=== PATIENT | male | born 1995 | race Caucasian/White ===

== ENCOUNTER 2021-04-22 23:51 | Emergency (ER) | payer OTHER, SELFPAY ==
[2021-04-22 23:53] VITALS: BP 139/84; PULSE 98; RESP 16; TEMP 36.6; O2SAT 97; BMI 31.4
[2021-04-23 00:31] VITALS: BP 124/82; PULSE 100; O2SAT 95
[2021-04-23 00:58] VITALS: BP 140/80; PULSE 82; RESP 17; TEMP 36.7; O2SAT 99
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
== END 2021-04-23 01:00 | disposition home or self-care (01) ==
PROVIDERS: Emergency Provider Emergency Medicine; PCP Nurse Practitioner Family
DX: T23.161A Burn of first degree of back of right hand, initial encounter (principal); T26.02XA Burn of left eyelid and periocular area, initial encounter; X02.8XXA Other exposure to controlled fire in building or structure, initial encounter; Y92.010 Kitchen of single-family (private) house as the place of occurrence of the external cause
CPT/HCPCS: 99281

== ENCOUNTER 2022-04-28 19:19 | Emergency (ER) | payer OTHER, SELFPAY ==
--- NOTE | 2022-04-28 19:15 | ECG_ITS ---
APPROVED REPORT Exam: Resting ECG HR:94 bpm ECG Measurements Heart Rate 94 AXES VA 180 P 67 QRSd 97 QRS 83 QT 353 T 35 QTc 405 Conclusion SINUS RHYTHM POSSIBLE RIGHT VENTRICULAR CONDUCTION DELAY [RSR (QR) IN V1/V2] BORDERLINE ECG UNCONFIRMED REPORT Electronically signed by : Rodriguez Gaona MD 04/29/2022 13:21:43
[2022-04-28 19:19] VITALS: BP 165/99; PULSE 102; RESP 21; TEMP 36.6; O2SAT 99; BMI 37.5
[2022-04-28 19:21] VITALS: BMI 36.6
--- NOTE | 2022-04-28 19:22 | XR_ITS ---
PROCEDURE INFORMATION: Exam: XR Chest Exam date and time: 04/28/2022 7:48 PM Age: 26 years old Clinical indication: Sternal or substernal pain; Additional info: Chest pain TECHNIQUE: Imaging protocol: Radiologic exam of the chest. Views: 2 views. COMPARISON: No relevant prior studies available. FINDINGS: Lungs: The known nodular density in the inferolateral right lower lobe is faintly perceptible on the frontal chest radiograph. The lungs appear otherwise clear. No focal areas of consolidation. Pleural spaces: No pleural effusions or appreciable adenopathy. Negative for pneumothorax. Heart/Mediastinum: Cardiac silhouette and pulmonary vasculature are within range of normal. Bones/joints: There is no evidence of acute fracture. IMPRESSION: 1. The known nodular density in the inferolateral right lower lobe as seen on the CT from the same date and time is faintly perceptible on the frontal chest radiograph. The lungs appear otherwise clear. Findings were discussed with HONG DUFFY at 04/28/2022 8:28 PM EDT.
--- NOTE | 2022-04-28 19:25 | CT_ITS ---
PROCEDURE INFORMATION: Exam: CT Abdomen And Pelvis Without Contrast Exam date and time: 04/28/2022 7:48 PM Age: 26 years old Clinical indication: Abdominal pain; Localized; Lower; Additional info: Severe low abd pain with tenderness radiating TECHNIQUE: Imaging protocol: Computed tomography of the abdomen and pelvis without contrast. Radiation optimization: All CT scans at this facility use at least one of these dose optimization techniques: automated exposure control; mA and/or kV adjustment per patient size (includes targeted exams where dose is matched to clinical indication); or iterative reconstruction. COMPARISON: No relevant prior studies available. FINDINGS: Lungs: A nonspecific somewhat lobular nodule within the inferior posterolateral right lower lobe measuring 15 x 14 by 17 mm. Lung bases are otherwise clear. Pleural spaces: There are no pleural effusions. Heart: The visualized portions of the heart are unremarkable. There is no evidence of pericardial fluid collections. Liver: There is a diffuse decrease in hepatic parenchymal density, consistent with fatty infiltration. There are regions of focal parenchymal sparing adjacent to the gallbladder fossa. There is mild enlargement of the liver measuring 20 cm in CC dimension. Gallbladder and bile ducts: Normal. No calcified stones. No ductal dilation. Pancreas: The pancreas is normal. Spleen: The spleen is normal. Adrenal glands: The adrenal glands are normal. Kidneys and ureters: There is a 4 mm calcification in the distal left ureter without significant hydronephrosis or hydroureter. No significant perinephric fat stranding. Kidneys are otherwise within range of normal. Stomach and bowel: The stomach is normal. The duodenum is unremarkable. Unopacified loops of small bowel are within range of normal. Lack of gastrointestinal contrast limits evaluation of bowel. The colon is normal. Unopacified loops of small bowel are within range of normal. Appendix: A normal appendix is identified. Intraperitoneal space: No evidence of intraperitoneal free air. No significant free fluid. Vasculature: No abdominal aortic aneurysm. Lymph nodes: No enlarged lymph nodes. There are a few scattered small retroperitoneal and periportal lymph nodes, not of pathologic significance by CT size criteria. Urinary bladder: The bladder is decompressed. Reproductive: Unremarkable as visualized. Bones/joints: There is a benign bone island involving the right proximal femur. There is no evidence of acute fracture. Soft tissues: No significant soft tissue edema. There is a tiny fat-containing umbilical hernia. IMPRESSION: 1. 4 mm calculus in the distal left ureter without significant obstruction. 2. Nonspecific macro lobular lobular pulmonary nodule within the inferior posterolateral right lower lobe measuring 15 x 14 by 17 mm. While findings may reflect benign lesion such as granuloma or hamartoma., recommend Recomend additional evaluation to exclude the possibility of malignancy and pulmonary consultation. Highly suspicious nodule(s). Consider non-emergent PET/CT, or tissue sampling.(Reference: Kwasi) References: Kathyhomarry Taveras, et al. Guidelines for Management of Incidental Pulmonary Nodules Detected on CT Images: From the Fleischner Society 2017. Radiology. 2017;284(1):228-243. 3. Mild hepatomegaly. 4. Tiny fat- containing umbilical hernia.
[2022-04-28 19:29] LABS: Basophils # 0.1 K/mm3 (0-0.2); Eosinophils # 0.3 K/mm3 (0.0-0.4); Eosinophils % 3.2 % (0.1-12.0); Hematocrit 42.2 % (42.0-52.0); Hemoglobin 14.5 g/dL (14.1-18.0); Lymphocytes # 3.3 K/mm3 (0.7-4.5); Lymphocytes % 33.8 % (10-50); Mean Corpuscular HGB Conc 34.3 g/dL (31.8-35.4); Mean Corpuscular Hemoglobin 29.3 pg (27.0-31.2); Mean Corpuscular Volume 85.2 fl (80-94); Mean Platelet Volume 7.8 fl (7.4-10.4); Monocytes # 0.4 K/mm3 (0.1-1.0); Monocytes % 4.3 % (1.7-9.3); Neutrophils # 5.6 K/mm3 (1.8-7.8); Neutrophils % 57.8 % (37.0-80.0); Platelet Count 311 K/mm3 (142-424); Red Blood Count 4.96 M/mm3 (4.60-6.20); White Blood Count 9.7 K/mm3 (4.8-10.8)
[2022-04-28 19:40] LABS: Chloride 103 mmol/L (98-107); Potassium 3.5 mmoL/L (3.5-5.1); Sodium 139 mmol/L (136-145)
[2022-04-28 19:43] LABS: Alanine Aminotransferase 50 U/L (12-78); Albumin Level 4.5 g/dl (3.5-5.0); Alkaline Phosphatase 117 U/L (38-126); Amylase 54 U/L (30-110); Anion Gap 16.5 mEq/L (5-15); Aspartate Amino Transferase 44 U/L (17-59); Bilirubin,Indirect 0.4 mg/dL (0.0-0.9); Bilirubin,Total 0.4 mg/dl (0.2-1.3); Bilirubin,Unconjugated 0.4 mg/dL (0.0-1.1); Blood Urea Nitrogen 12 mg/dl (9-20); Calcium 9.8 mg/dl (8.4-10.2); Carbon Dioxide 23 mmol/L (22.0-30.0); Creatinine Clearance Estimated 258 mL/min (50-200); Estimated Glomerular Filt Rate 118 ml/min (>60); GFR (African American) 143 ML/MIN (>60); Glucose 123 mg/dl (74-100); Lipase 54 U/L (23-300); Total Protein,Serum 7.6 g/dl (6.3-8.2)
--- NOTE | 2022-04-28 19:52 | PC.NURSE ---
pt rolling around n pain states its LLQ GOES FROM FLANK TO GROIN WITH ALOT OF PRESSUIRE IN HIS SCROTUM . PT MEDICATED WITH A 1MG DILAUDID , PT GOING TO CT
[2022-04-28 19:56] LABS: Troponin I < 0.01 ng/ml (0.00-0.034)
[2022-04-28 19:56] LABS: Microscopic, Urine URINE MICROSCOPIC (MICROSCOPIC)
[2022-04-28 19:59] LABS: Appearance,Urine CLEAR (Clear); Bilirubin,Urine Negative (Negative); Blood, Urine 2+ (Negative); Color,Urine YELLOW (Yellow); Glucose,Urine (UA) Negative (Negative); Ketones,Urine Negative (Negative); Leukocyte Esterase,Urine Negative (Negative); Nitrate,Urine Negative (Negative); Protein,Urine TRACE (Negative); Specific Gravity, Urine >= 1.030 (1.005-1.030); Urobilinogen,Urine 0.2 EU/dl (0.2)
--- NOTE | 2022-04-28 20:26 | PC.NURSE ---
Dr. Duque s/w JAAD
[2022-04-28 20:30] VITALS: BP 154/88; PULSE 75; O2SAT 98
[2022-04-28 20:58] LABS: Bacteria,Urine Trace /lpf; WBC,Urine Occasional #/hpf (0-3)
--- NOTE | 2022-04-28 21:39 | PC.NURSE ---
Pt vomiting and in pain. Dr. Duque aware of pt's condition. No new orders at this time.
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
--- NOTE | 2022-04-28 22:39 | PC.NURSE ---
Per Dr Duque, verbal order received for Dilaudid 1mg and Phenergan 25mg IV, order placed in mar
[2022-04-28 22:57] VITALS: BP 135/74; PULSE 101; O2SAT 98
--- NOTE | 2022-04-28 22:59 | PC.NURSE ---
Pt reports his pain is decreasing and would only like the nausea medication at this time. He would like to hold off on dilaudid. Will continue to monitor pt and recheck his pain and nausea level.
[2022-04-28 23:01] VITALS: BP 121/71; PULSE 110; PULSE 90; O2SAT 97
[2022-04-29 00:34] VITALS: BP 118/75; PULSE 74; RESP 16; TEMP 36.7; O2SAT 97
== END 2022-04-29 00:40 | disposition home or self-care (01) ==
PROVIDERS: Emergency Provider Emergency Medicine
DX: N23 Unspecified renal colic (principal); Z79.899 Other long term (current) drug therapy; Z72.0 Tobacco use
CPT/HCPCS: 71046; 74176; 80048; 80076; 81001; 82150; 83690; 84484; 85025; 93005; 96365; 96366; 96375; 96376; 99285; J2405

== ENCOUNTER 2024-06-26 17:07 | Emergency (ER) | payer SELFPAY ==
--- NOTE | 2024-06-26 17:40 | HMH.EDGENADL ---
Discharge Plan Disposition Patient Disposition: Home, Self-Care Condition: Good Prescriptions Prescriptions: New ondansetron 4 mg tablet,disintegrating 4 mg PO Q6H PRN (Reason: nausea and vomiting) Qty: 10 0RF ketorolac 10 mg tablet 10 mg PO Q8H PRN (Reason: pain) 3 Days Qty: 10 0RF tamsulosin 0.4 mg capsule 0.4 mg PO HS Qty: 10 0RF Discontinued tamsulosin [Flomax] 0.4 mg capsule 0.4 mg PO DAILY Qty: 10 0RF Referrals Follow up/Referrals: Bessie Kelley APRN [Primary Care Provider] - See instructions Activity Restrictions/Add. Instructions Additional Instructions/Restrictions: Please strain all urine to capture the stone. If you did not have any improvement or have worsening signs or symptoms follow-up with your PCP or return to ER. If you develop fever intractable pain nausea vomiting return to the ER immediately. Clinical Impressions Clinical Impression: Calculus of ureterovesical junction (UVJ) Instructions Patient Instructions: DI for Diarrhea and Traveler's Diarrhea -- Adult, DI for Diarrhea and Traveler's Diarrhea -- Child, DI for Nausea -- Adult, DI for Nausea -- Child Print Language Print Language: [place] Discharge ED Provider: Keo Kennedy General Adult HPI <SU Vaz - Last Filed: 06/26/24 20:35> General Chief complaint: Nausea/Vomiting/Diarrhea Stated complaint: possible kidney stone with vomiting Time Seen by Provider: 06/26/24 17:38 History of Present Illness HPI narrative: Patient presents for right lower quadrant abdominal pain. Patient states it started this morning and has not radiated. It is only intensified throughout the day. He states he also feels right flank pain. He does have a history of previous kidney stone however does retain his appendix. He denies any fever chills hemoptysis hematochezia melena hematemesis hematuria. Related Data Previous Rx's ?Medication ?Instructions ?Recorded ketorolac 10 mg tablet 10 mg PO Q8H PRN pain 3 days #10 06/26/24 tabs ondansetron 4 mg disintegrating 4 mg PO Q6H PRN nausea and 06/26/24 tablet vomiting #10 tabs tamsulosin 0.4 mg capsule 0.4 mg PO HS #10 caps 06/26/24 Allergies Allergy/AdvReac Type Severity Reaction Status Date / Time No Known Allergies Allergy Verified 04/28/22 19:21 PFS <SU Vaz - Last Filed: 06/26/24 20:35> [facility] Disclaimer: The information contained in this section may have been updated after the patient was seen, as this information can be updated by other users. Social History (Updated 04/28/22 @ 23:54 by Deven Duque MD) Smoking Status: Never smoker alcohol intake: never current occupational status: employed Travel in the last 8 weeks: None Have you lived/traveled outside [place] in past 30 days?: No Contact w/someone who lives/traveled outside US past 30 days?: No Exposure to someone with infectious disease in past 14 days?: No Do you have a fever (greater than 100.4 F or 38 C)?: No Have you tested positive for COVID-19: No Exposed to someone with COVID-19 in past 14 days?: No Do you have a sore throat?: No Do you have a cough?: No Do you have any weakness?: No Do you have any diarrhea?: No Are you experiencing any unusual bleeding?: No Do you have any muscle aches/pain?: No Do you have any abdominal pain?: No Are you experiencing loss of taste or smell?: No Other Medical History Have you received the Flu Vaccine for this season: No Have you received the Pneumonia Vaccine: No <SU Vaz - Last Filed: 06/26/24 20:35> ROS Obtained: Yes Systems reviewed as appropriate & no additional complaints except as documented Physical Exam <SU Vaz - Last Filed: 06/26/24 20:35> General General appearance: alert and in no apparent distress Respiratory Respiratory exam: Present normal lung sounds bilaterally Cardiovascular Cardiovascular exam: Present regular rate Neurological Exam Neurological exam: Present alert and oriented X3 Medical Decision Making <SU Vaz - Last Filed: 06/26/24 20:35> Medical Records Medical records reviewed: Yes I reviewed the patient's medical records. Screening: Per USPSTF and CDC recommendations, given the prevalence of disease in our region, it is our hospital?s policy to screen for HIV and viral Hepatitis for all patients aged 18 and over and those with ongoing risk factors. Tono Inquiry Pt receiving controlled substance: No Vital Signs: 06/26/24 17:48 06/26/24 18:05 Temperature 98.7 F Temperature Source Oral Pulse Rate 86 Pulse Rate [Left] 90 Respiratory Rate 18 Blood Pressure 162/101 H Blood Pressure [Right Arm] 163/102 H Blood Pressure Mean [Right Arm] 122 Blood Pressure Source [Right Arm] Automatic Cuff 02 Sat by Pulse Oximetry 96 100 Oxygen Delivery Method Room Air Room Air Lab Data Lab results reviewed: Yes I reviewed the patient's lab results. Lab Results 06/26/24 17:35: WBC 13.0 H, RBC 5.02, Hgb 14.6, Hct 41.6 L, MCV 82.9, MCH 29.1, MCHC 35.1, RDW 13.3, Plt Count 308, MPV 10.5 H, Neut % (Auto) 74.5, Lymph % (Auto) 17.4, [place] % (Auto) 5.6, Eos % (Auto) 1.4, Baso % (Auto) 0.5, Neut # (Auto) 9.7 H, Lymph # (Auto) 2.3, [place] # (Auto) 0.7, Eos # (Auto) 0.2, Baso # (Auto) 0.1, Sodium 136, Potassium 3.7, Chloride 105, Carbon Dioxide 21 L, Anion Gap 13.7, BUN 14, Creatinine 1.00, Estimated Creat Clear 210, Estimated GFR 90, Est GFR ( Amer) 108, Glucose 140 H, Calcium 9.7, Total Bilirubin 0.7, AST 70 H, ALT 74, Alkaline Phosphatase 133 H, Total Protein 7.6, Albumin 4.5, Globulin 3.1, Albumin/Globulin Ratio 1.5, HIV Ag/Ab Combo Qual Negative 06/26/24 18:26: Urine Color Yellow, Urine Appearance Turbid, Urine pH 6.0, Ur Specific Lyman >= 1.030, Urine Protein Trace, Urine Glucose (UA) Negative, Urine Ketones 1+, Urine Blood 3+ A, Urine Nitrate Negative, Urine Bilirubin 1+ A, Urine Urobilinogen 0.2, Ur Leukocyte Esterase Negative, Urine RBC 10-20, Urine WBC Occasional, Ur Squamous Epith Cells Occasional, Urine Bacteria 4+ 06/26/24 17:35 06/26/24 17:35 Orders (Tests/Meds): ED MEDICATIONS Discontinued Medications Generic Name Dose Route Start Last Admin Trade Name Alea PRN Reason Stop Dose Admin Acetaminophen 1,000 mg 06/26/24 18:03 06/26/24 18:35 Acetaminophen 1,000mg/100ml Vial IV 06/26/24 18:04 1,000 mg ONCE ONE Administration Hydromorphone HCl 1 mg 06/26/24 19:27 06/26/24 19:44 Hydromorphone 2mg/Ml Syringe IV 06/26/24 19:28 1 mg ONCE ONE Administration Sodium Chloride 1,000 mls @ 999 mls/hr 06/26/24 18:03 Sod Chlor 0.9% 1000ml Bag IV 06/26/24 19:03 .Q1H1M ONE Lactated Ringer's 1,000 mls @ 999 mls/hr 06/26/24 18:03 06/26/24 18:37 Lactated Ringer's 1000 Ml Bag IV 06/26/24 19:03 999 mls/hr .Q1H1M ONE Administration Iopamidol 75 ml 06/26/24 18:41 06/26/24 18:42 Iopamidol-370 (76%);100ml Bottle IV 06/26/24 18:42 75 ml ONCE ONE Administration Ketorolac Tromethamine 15 mg 06/26/24 18:03 06/26/24 18:36 Ketorolac 30mg/Ml Vial IV 06/26/24 18:04 15 mg ONCE ONE Administration Morphine Sulfate 2 mg 06/26/24 18:03 06/26/24 18:36 Morphine 2mg/Ml Syringe IV 06/26/24 18:04 2 mg ONCE ONE Administration Ondansetron HCl 4 mg 06/26/24 18:00 06/26/24 18:07 Ondansetron 4mg/2ml Vial IV 06/26/24 18:01 4 mg ONCE ONE Administration Sodium Chloride 10 ml 06/26/24 18:41 06/26/24 18:42 Sodium Chloride 0.9% 10ml Syr (Rad Only) IV 06/26/24 18:42 10 ml ONCE ONE Administration Tamsulosin HCl 0.4 mg 06/26/24 19:28 06/26/24 19:44 Tamsulosin 0.4mg Capsule PO 06/26/24 19:29 0.4 mg ONCE ONE Administration ORDERS Category Date Time Status CT abdomen pelvis w con Stat Cat Scan 06/26/24 18:03 Completed CBC w/Auto Diff [Complete Blood Count Auto Diff] Stat Lab 06/26/24 17:35 Completed CMP [Comprehensive Metabolic Panel] Stat Lab 06/26/24 17:35 Results HIV Combo Stat Lab 06/26/24 17:35 Completed Hep C Ab with Reflex to RNA Stat Lab 06/26/24 17:35 Received Procalcitonin Stat Lab 06/26/24 17:35 Results UA [Urinalysis and Microscopic] Stat Lab 06/26/24 18:26 Completed Urine Culture Stat Micro 06/26/24 18:26 Received Medical Decision Narrative: In summary patient is a 28-year-old male who presents to the emergency department for evaluation of right lower quadrant abdominal pain. Patient is actually hypertensive with a blood pressure 163/102 heart rate of 90 respiratory rate 18 satting at 96% on room air upon arrival, afebrile 98.7. Physical exam is markable for exquisite right lower quadrant tenderness however he does not have rebound or guarding or rigidity. Bowel sounds are normal active.. Differential diagnosis includes acute appendicitis versus kidney stone versus urinary tract infection etc. Initial workup will be conducted with hematologic labs urinalysis CT scan abdomen pelvis. Initial interventions include crystalloid bolus Toradol Tylenol morphine Zofran. Initial workup reviewed by me his hematologic and labs are nonactionable however his urinalysis shows blood without evidence of infection, my informal interpretation of CT scan abdomen pelvis shows right-sided hydronephrosis with a very small right UVJ stone. Upon repeat evaluation patient had significant improvement with initial intervention. Given this patient is appropriate for discharge with Zofran Toradol tamsulosin and opiates with instructions to strain all urine. Patient given strict return precautions to return to the ER. <Keo Kennedy MD - Last Filed: 06/26/24 20:49> Vital Signs: 06/26/24 17:48 06/26/24 18:05 Temperature 98.7 F Temperature Source Oral Pulse Rate 86 Pulse Rate [Left] 90 Respiratory Rate 18 Blood Pressure 162/101 H Blood Pressure [Right Arm] 163/102 H Blood Pressure Mean [Right Arm] 122 Blood Pressure Source [Right Arm] Automatic Cuff 02 Sat by Pulse Oximetry 96 100 Oxygen Delivery Method Room Air Room Air Lab Data Lab Results 06/26/24 17:35: WBC 13.0 H, RBC 5.02, Hgb 14.6, Hct 41.6 L, MCV 82.9, MCH 29.1, MCHC 35.1, RDW 13.3, Plt Count 308, MPV 10.5 H, Neut % (Auto) 74.5, Lymph % (Auto) 17.4, [place] % (Auto) 5.6, Eos % (Auto) 1.4, Baso % (Auto) 0.5, Neut # (Auto) 9.7 H, Lymph # (Auto) 2.3, [place] # (Auto) 0.7, Eos # (Auto) 0.2, Baso # (Auto) 0.1, Sodium 136, Potassium 3.7, Chloride 105, Carbon Dioxide 21 L, Anion Gap 13.7, BUN 14, Creatinine 1.00, Estimated Creat Clear 210, Estimated GFR 90, Est GFR ( Amer) 108, Glucose 140 H, Calcium 9.7, Total Bilirubin 0.7, AST 70 H, ALT 74, Alkaline Phosphatase 133 H, Total Protein 7.6, Albumin 4.5, Globulin 3.1, Albumin/Globulin Ratio 1.5, HIV Ag/Ab Combo Qual Negative 06/26/24 18:26: Urine Color Yellow, Urine Appearance Turbid, Urine pH 6.0, Ur Specific Lyman >= 1.030, Urine Protein Trace, Urine Glucose (UA) Negative, Urine Ketones 1+, Urine Blood 3+ A, Urine Nitrate Negative, Urine Bilirubin 1+ A, Urine Urobilinogen 0.2, Ur Leukocyte Esterase Negative, Urine RBC 10-20, Urine WBC Occasional, Ur Squamous Epith Cells Occasional, Urine Bacteria 4+ Orders (Tests/Meds): ED MEDICATIONS Discontinued Medications Generic Name Dose Route Start Last Admin Trade Name Freq PRN Reason Stop Dose Admin Acetaminophen 1,000 mg 06/26/24 18:03 06/26/24 18:35 Acetaminophen 1,000mg/100ml Vial IV 06/26/24 18:04 1,000 mg ONCE ONE Administration Hydromorphone HCl 1 mg 06/26/24 19:27 06/26/24 19:44 Hydromorphone 2mg/Ml Syringe IV 06/26/24 19:28 1 mg ONCE ONE Administration Sodium Chloride 1,000 mls @ 999 mls/hr 06/26/24 18:03 Sod Chlor 0.9% 1000ml Bag IV 06/26/24 19:03 .Q1H1M ONE Lactated Ringer's 1,000 mls @ 999 mls/hr 06/26/24 18:03 06/26/24 18:37 Lactated Ringer's 1000 Ml Bag IV 06/26/24 19:03 999 mls/hr .Q1H1M ONE Administration Iopamidol 75 ml 06/26/24 18:41 06/26/24 18:42 Iopamidol-370 (76%);100ml Bottle IV 06/26/24 18:42 75 ml ONCE ONE Administration Ketorolac Tromethamine 15 mg 06/26/24 18:03 06/26/24 18:36 Ketorolac 30mg/Ml Vial IV 06/26/24 18:04 15 mg ONCE ONE Administration Morphine Sulfate 2 mg 06/26/24 18:03 06/26/24 18:36 Morphine 2mg/Ml Syringe IV 06/26/24 18:04 2 mg ONCE ONE Administration Ondansetron HCl 4 mg 06/26/24 18:00 06/26/24 18:07 Ondansetron 4mg/2ml Vial IV 06/26/24 18:01 4 mg ONCE ONE Administration Sodium Chloride 10 ml 06/26/24 18:41 06/26/24 18:42 Sodium Chloride 0.9% 10ml Syr (Rad Only) IV 06/26/24 18:42 10 ml ONCE ONE Administration Tamsulosin HCl 0.4 mg 06/26/24 19:28 06/26/24 19:44 Tamsulosin 0.4mg Capsule PO 06/26/24 19:29 0.4 mg ONCE ONE Administration ORDERS Category Date Time Status CT abdomen pelvis w con Stat Cat Scan 06/26/24 18:03 Completed CBC w/Auto Diff [Complete Blood Count Auto Diff] Stat Lab 06/26/24 17:35 Completed CMP [Comprehensive Metabolic Panel] Stat Lab 06/26/24 17:35 Results HIV Combo Stat Lab 06/26/24 17:35 Completed Hep C Ab with Reflex to RNA Stat Lab 06/26/24 17:35 Received Procalcitonin Stat Lab 06/26/24 17:35 Results UA [Urinalysis and Microscopic] Stat Lab 06/26/24 18:26 Completed Urine Culture Stat Micro 06/26/24 18:26 Received Medical Decision Narrative: In summary patient is a 28-year-old male who presents to the emergency department for evaluation of right lower quadrant abdominal pain. Patient is actually hypertensive with a blood pressure 163/102 heart rate of 90 respiratory rate 18 satting at 96% on room air upon arrival, afebrile 98.7. Physical exam is markable for exquisite right lower quadrant tenderness however he does not have rebound or guarding or rigidity. Bowel sounds are normal active.. Differential diagnosis includes acute appendicitis versus kidney stone versus urinary tract infection etc. Initial workup will be conducted with hematologic labs urinalysis CT scan abdomen pelvis. Initial interventions include crystalloid bolus Toradol Tylenol morphine Zofran. Initial workup reviewed by me his hematologic and labs are nonactionable however his urinalysis shows blood without evidence of infection, my informal interpretation of CT scan abdomen pelvis shows right-sided hydronephrosis with a very small right UVJ stone. Upon repeat evaluation patient had significant improvement with initial intervention. Given this patient is appropriate for discharge with Zofran Toradol tamsulosin and opiates with instructions to strain all urine. Patient given strict return precautions to return to the ER. I was consulted by the NASH, and we discussed the complexity of the problems being addressed. I approved the treatment and management plan for this patient's care in the Emergency Department, thus performing a substantive portion of the medical decision making. Keo Kennedy MD Critical Care <SU Vaz - Last Filed: 06/26/24 20:35> Critical Care Time Critical Care Time: No
[2024-06-26 17:48] VITALS: BP 163/102; PULSE 90; RESP 18; TEMP 37.1; O2SAT 96; BMI 37.8
--- NOTE | 2024-06-26 18:03 | CT_ITS ---
PROCEDURE INFORMATION: Exam: CT Abdomen And Pelvis With Contrast Exam date and time: 06/26/2024 6:40 PM Age: 28 years old Clinical indication: Other: Right lower quadrant abdominal pain TECHNIQUE: Imaging protocol: Computed tomography of the abdomen and pelvis with contrast. Radiation optimization: All CT scans at this facility use at least one of these dose optimization techniques: automated exposure control; mA and/or kV adjustment per patient size (includes targeted exams where dose is matched to clinical indication); or iterative reconstruction. Contrast material: ISOVUE; Contrast volume: 75 ml; Contrast route: IV; COMPARISON: 1. CT ABDOMEN PELVIS WO CON 04/28/2022 7:48 PM 2. CR XR CHEST 2V 04/28/2022 7:48 PM FINDINGS: Lungs: There is a lobulated nodule at the right lung base measuring 1.6 cm which appears stable since at least April 28, 2022. Liver: There is diffuse fatty infiltration throughout the liver. Gallbladder and biliary ducts: No acute process. Pancreas: Normal. Spleen: Normal. Adrenal glands: The adrenal glands appear normal. Kidneys and ureters: There is [id number] right hydroureteronephrosis extending to the right UVJ where there is a 2 mm calculus (image 116 series 3). There is a right-sided obstructive uropathy. Stomach and bowel: The stomach, small bowel, and colon are well-distended and show no evidence of wall thickening, masses, or obstruction. Appendix: No evidence of appendicitis. Intraperitoneal space: Unremarkable. Vasculature: The abdominal aorta and its major branches appear normal without evidence of aneurysm or stenosis. There are pelvic phleboliths. Lymph nodes: No lymphadenopathy. Urinary bladder: Unremarkable as visualized. Reproductive: No acute process. Bones/joints: The visualized osseous structures of the abdomen and pelvis appear normal for patient age. Soft tissues: There is a small fat containing umbilical hernia. IMPRESSION: 1. There is [id number] right hydroureteronephrosis extending to the right UVJ where there is a 2 mm calculus (image 116 series 3). 2. Hepatic steatosis. 3. There is a lobulated nodule at the right lung base measuring 1.6 cm which appears stable since at least April 28, 2022.
[2024-06-26 18:05] VITALS: BP 162/101; PULSE 86; O2SAT 100
[2024-06-26] MEDS: ONDANSETRON 4MG/2ML VIAL 4 MG IV (18:07)
[2024-06-26 18:14] LABS: Albumin Level 4.5 g/dl (3.5-5.0)
[2024-06-26 18:15] LABS: Sodium 136 mmol/L (136-145)
[2024-06-26 18:17] LABS: Blood Urea Nitrogen 14 mg/dl (9-20); Creatinine Clearance Estimated 210 mL/min (50-200); Estimated Glomerular Filt Rate 90 ml/min (>60); GFR (African American) 108 ML/MIN (>60)
[2024-06-26 18:18] LABS: Bilirubin,Total 0.7 mg/dl (0.2-1.3); Carbon Dioxide 21 mmol/L (22.0-30.0); Glucose 140 mg/dl (74-100)
[2024-06-26 18:21] LABS: Basophils # 0.1 K/mm3 (0-0.2); Basophils % 0.5 % (0.1-2.0); Eosinophils # 0.2 K/mm3 (0.0-0.4); Eosinophils % 1.4 % (0.1-12.0); Hematocrit 41.6 % (42.0-52.0); Hemoglobin 14.6 g/dL (14.1-18.0); Lymphocytes # 2.3 K/mm3 (0.7-4.5); Lymphocytes % 17.4 % (10-50); Mean Corpuscular HGB Conc 35.1 g/dL (31.8-35.4); Mean Corpuscular Hemoglobin 29.1 pg (27.0-31.2); Mean Corpuscular Volume 82.9 fl (80-94); Mean Platelet Volume 10.5 fl (7.4-10.4); Monocytes # 0.7 K/mm3 (0.1-1.0); Monocytes % 5.6 % (1.7-9.3); Neutrophils # 9.7 K/mm3 (1.8-7.8); Neutrophils % 74.5 % (37.0-80.0); Platelet Count 308 K/mm3 (142-424); Red Blood Count 5.02 M/mm3 (4.60-6.20); Red Cell Distribution Width 13.3 % (11.5-17.5)
[2024-06-26 18:31] LABS: Microscopic, Urine URINE MICROSCOPIC (MICROSCOPIC)
[2024-06-26] MEDS: ACETAMINOPHEN 1,000MG/100ML VIAL 1000 MG IV (18:35)
[2024-06-26] MEDS: KETOROLAC 30MG/ML VIAL 15 MG IV (18:36)
[2024-06-26] MEDS: MORPHINE 2MG/ML SYRINGE 2 MG IV (18:36)
[2024-06-26] MEDS: LACTATED RINGERS 1000ML 1,000 ML 999 ML IV (18:37)
--- NOTE | 2024-06-26 18:37 | PC.NURSE ---
[address]
[2024-06-26 18:42] LABS: Anion Gap 13.7 mEq/L (5-15); Chloride 105 mmol/L (98-107); Potassium 3.7 mmoL/L (3.5-5.1)
[2024-06-26] MEDS: SODIUM CHLORIDE 0.9% 10ML SYR (RAD ONLY) 10 ML IV (18:42)
[2024-06-26] MEDS: IOPAMIDOL-370 (76%);100ML BOTTLE 75 ML IV (18:42)
[2024-06-26 18:45] LABS: Alanine Aminotransferase 74 U/L (12-78); Albumin/Globulin Ratio 1.5 (1.1-1.8); Alkaline Phosphatase 133 U/L (38-126); Aspartate Amino Transferase 70 U/L (17-59); Calcium 9.7 mg/dl (8.4-10.2); Globulin 3.1 g/dL (1.3-3.2); Total Protein,Serum 7.6 g/dl (6.3-8.2)
[2024-06-26 18:59] LABS: HIV Combo NEGATIVE (Negative)
[2024-06-26 19:22] LABS: Appearance,Urine TURBID (Clear); Blood, Urine 3+ (Negative); Color,Urine YELLOW (Yellow); Glucose,Urine (UA) Negative (Negative); Ketones,Urine 1+ (Negative); Leukocyte Esterase,Urine Negative (Negative); Nitrate,Urine Negative (Negative); Protein,Urine TRACE (Negative); Specific Gravity, Urine >= 1.030 (1.005-1.030); Urobilinogen,Urine 0.2 EU/dl (0.2)
[2024-06-26 19:38] LABS: Bilirubin,Urine 1+ (Negative)
[2024-06-26] MEDS: TAMSULOSIN 0.4MG CAPSULE 0.4 MG PO (19:44)
[2024-06-26] MEDS: HYDROMORPHONE 2MG/ML SYRINGE 1 MG IV (19:44)
[2024-06-26 20:30] LABS: Bacteria,Urine 4+ /lpf; Squamous Epithelial Cell,Urine Occasional #/hpf (0-5); WBC,Urine Occasional #/hpf (0-3)
[2024-06-26 20:35] VITALS: BP 137/87; PULSE 79; RESP 20; TEMP 37.2; O2SAT 96
[2024-06-28 07:18] LABS: HCV Ab Non Reactive (Non Reactive)
== END 2024-06-26 20:51 | disposition home or self-care (01) ==
PROVIDERS: Physician Assistant; Emergency Provider Emergency Medicine; PCP Nurse Practitioner Family
DX: N20.1 Calculus of ureter (principal); R10.31 Right lower quadrant pain; R11.10 Vomiting, unspecified
CPT/HCPCS: 74177; 80053; 81001; 84145; 85025; 86803; 87086; 87389; 96361; 96374; 96375; 99285; J0131; J1171; J1885; J2270; J2405; J7120; Q9967